=== PATIENT | male | born 1955 | race Caucasian/White ===

== ENCOUNTER 2017-05-10 11:58 | Day surgery (SDC) | payer MEDICARE, BC ==
[2017-05-10] MEDS ORDERED: LIDOCAINE 2% MDV (20MG/ML) 20ML VIAL IV ONE (11:59)
[2017-05-10] MEDS ORDERED: PROPOFOL 10 MG/ML VIAL IV ONE (11:59)
[2017-05-10] MEDS ORDERED: MIDAZOLAM HCL 2MG/2ML VIAL IV ONE (11:59)
--- NOTE | 2017-05-11 13:10 | Operative Note ---
DATE OF SURGERY: 05/10/2017 OPERATION: COLONOSCOPY to the cecum with cold snare polypectomy x2 and electrocautery snare polypectomy x1. INDICATION: Colorectal cancer screening. His last examination was more than 10 years ago. ANESTHESIA: Intravenous sedation was administered by the department of anesthesiology and included Diprivan titrated to effect. PROCEDURE: Following informed consent from this alert individual including a discussion of the risks and benefits of the procedure and an opportunity for the patient to ask questions, the patient was in the left lateral decubitus position. A digital rectal examination was performed. No abnormalities were noted. Following this, the Olympus [id number] video colonoscope was inserted into the rectum without resistance. The rectal mucosa had a normal appearance with normal folds and distensibility. The sigmoid colon was cannulated and demonstrated a 5 mm polyp noted which was removed with cold snare polypectomy and suctioned through the endoscope into a collection trap. The colonoscope was then further advanced up through the remainder of the bowel to the level of cecum without much difficulty. The cecum was defined by noting the appendiceal orifice and ileocecal valve. Retroflexion was accomplished in the rectum and failed to demonstrate changes. The colon preparation as fair with a fair amount of retained liquid stool, most of which was suctioned through the endoscope into a collection trap. Washing was also employed vigorously with suctioning. At the conclusion of the washing and suctioning, the preparation was fair to good. From the base of the cecum, the colonoscope was then slowly withdrawn. There was a descending colon polyp noted measuring 5 mm in size which was removed with cold snare polypectomy. There was a second sigmoid polyp noted measuring 8 mm in size removed with electrocautery snare polypectomy. A white eschar was noted with no bleeding. The endoscope was then brought back into the rectum. Retroflexion accomplished following air insufflation failed to demonstrate changes. Slow withdrawal through the anus revealed external hemorrhoids which were moderate in size. The endoscope was withdrawn. The patient tolerated the procedure well and was returned to the recovery area in stable condition. IMPRESSION: 1. Two sigmoid polyps removed measuring 5 and 8 mm in size. The smaller was removed with cold snare polypectomy and the larger with electrocautery snare polypectomy. 2. One descending colon polyp measuring 5 mm in size removed with cold snare polypectomy. 3. External hemorrhoids. 4. Fair to good prep. RECOMMENDATIONS: Further recommendations will be forthcoming pending results of pathology obtained today and patient might have recheck colonoscopy in 3 years' time, again pending pathology. Followup will also be with Dr. Ivana Devries. As always, thank you for allowing me to participate in the care of your patient. CC: Ivana ROBLES
== END 2017-05-10 14:15 | disposition home or self-care (01) ==
LOC: HOP 11:58
PROVIDERS: ATTEND Internal Medicine Gastroenterology
DX: Z12.11 Encounter for screening for malignant neoplasm of colon (principal); D12.4 Benign neoplasm of descending colon; D12.5 Benign neoplasm of sigmoid colon; Z87.19 Personal history of other diseases of the digestive system; K64.4 Residual hemorrhoidal skin tags; E03.9 Hypothyroidism, unspecified; I10 Essential (primary) hypertension; J44.9 Chronic obstructive pulmonary disease, unspecified

== ENCOUNTER 2017-05-16 16:53 | Emergency (ER) | payer MEDICARE, BC ==
[2017-05-16] MEDS ORDERED: EYE IRRIGATION SOLU. (SOD BOR/BORIC AC/H20/NACL) 118ML BTL OPTH ONE (17:12)
[2017-05-16] MEDS ORDERED: PROPARACAINE HCL OPTH 15ML BTL OPTH ONE (17:12)
--- NOTE | 2017-05-16 17:52 | Emergency Department Record ---
History of Present Illness - General Chief complaint: Eye Problem Stated complaint: FOREIGN OBJECT RT EYE Time Seen by Provider: 05/16/17 17:50 Source: Patient Mode of Arrival: Ambulatory Limitations: No limitations - History of Present Illness Initial comments: 61 yo male presents to ED for evaluation of foreign body sensation to the right eye that began approximately 2.5 hours ago. Patient reports that he was grinding metal when his symptoms began. Patient reports FB sensation to the right eye under the right upper eyelid. Patient denies change in vision, does report pain and eye irritation to the right eye. Patient reports similar symptoms previously, saw an resident manager last fall for similar symptoms. MD chief complaint: Eye pain, Eye redness, Foreign body Onset/Timin -: Hour(s) Onset Description: Sudden Location: Right eye Place: Home If Injury: Occurred while hammering/grinding Eye Symptoms: Burning, Foreign body sensation, Itching Severity: Moderate Severity scale (1-10): 2 If Pain, Quality: Aching, Burning Consistency: Constant, Intermittent Associated Symptoms: None Treatments Prior to Arrival: Irrigated eye - Related Data Visual acuity (L) = 20/: 20 Visual acuity (R) = 20/: 25 With correction: No Hx Tetanus Toxoid Vaccination: Yes Patient Tetanus UTD (within 5 yrs): No Allergies Allergy/AdvReac Type Severity Reaction Status Date / Time Hezrwvy-Ttb-Pgq Reductase Allergy Severe ALTERED Verified 05/16/17 17:11 Inhibitor MENTAL [[id number]-GTE-TUD REDUCTASE STATUS INHIBITOR] fenofibrate nanocrystallized Allergy HYPERSENSIT Verified 05/16/17 17:11 [From Tricor] IVITY fenofibrate,micronized Allergy HYPERSENSIT Verified 05/16/17 17:11 [From Tricor] IVITY cyclobenzaprine HCl AdvReac Intermediate NAUSEA AND Verified 05/16/17 17:11 [From Flexeril] VOMITING fenofibrate AdvReac Intermediate NAUSEA AND Verified 05/16/17 17:11 VOMITING morphine AdvReac Intermediate NAUSEA AND Verified 05/16/17 17:11 VOMITING Penicillins AdvReac Intermediate NAUSEA AND Verified 05/16/17 17:11 VOMITING Travel Screening - Travel/Exposure Within Last 30 Days Have you traveled within the last 30 days?: No - Travel/Exposure Within Last Year Have you traveled outside the [place] in the last year?: No - Additonal Travel Details Have you been exposed to anyone with a communicable illness?: No - Travel Symptoms Symptom Screening: None Review of Systems Constitutional: Denies: Chills, Fever, Malaise, Night sweats Eyes: Reports: Eye pain. Denies: Eye discharge, Photophobia ENT: Denies: Congestion, Ear pain, Epistaxis Respiratory: Denies: Cough, Dyspnea Cardiovascular: Denies: Chest pain, Dyspnea on exertion Endocrine: Denies: Fatigue, Heat or cold intolerance Gastrointestinal: Denies: Abdominal pain, Nausea, Vomiting Genitourinary: Denies: Incontinence, Retention Musculoskeletal: Denies: Arthralgia, Back pain, Gout, Joint swelling Skin: Denies: Bruising, Change in color Neurological: Denies: Abnormal gait, Confusion, Headache, Seizure Psychiatric: Denies: Anxiety Hematological/Lymphatic: Denies: Anemia, Blood Clots Past Medical History - SOCIAL HISTORY Smoking Status: Current every day smoker Alcohol Use: None Drug Use: None - RESPIRATORY Hx Respiratory Disorders: Yes Hx COPD: Yes (mild well controlled with inhalers. very cold weather bothers it) Hx Sleep Apnea: No (denies) Hx of CPAP: No - CARDIOVASCULAR Hx Cardio Disorders: Yes Hx Deep Vein Thrombosis: Yes Hx Hypertension: Yes (good control with meds) Hx Vascular Disease: Yes (right knee aneursym) Comment:: bilateral lower ext DVTs - NEURO Hx Neuro Disorders: Yes Hx Headaches: Yes (related to neck. daily) Hx Neuropathy: Yes (right leg to foot) - GI Hx GI Disorders: Yes Hx Abdominal Pain: Yes (after eating) Hx Reflux: Yes (occassionally) Hx Hiatal Hernia: Yes (had surgery to correct) Hx Irritable Bowel: Yes Hx Nausea/Vomiting: Yes (with headaches) Hx Ulcer: Yes (stomach ulcers x5) Hx Wt Loss/Wt Gain: No Hx of Polyps: Yes - Hx Genitourinary Disorders: No Hx Bladder Problem: No - ENDOCRINE Hx Endocrine Disorders: Yes Hx Thyroid Disease: Yes Comment:: total thyroidectomy "years ago" - MUSCULOSKELETAL Hx Musculoskeletal Disorders: Yes Hx Arthritis: Yes Comment:: pain pump - PSYCH Hx Anxiety: No Hx Depression: No (denies) - HEMATOLOGY/ONCOLOGY Hx Hematology/Oncology Disorders: Yes Hx Bruising: Yes (xaralto) Family Medical History Any Significant Family History?: Yes Hx Cancer: Mother *Cancer Comment: -MANAGER COMBINATION cancer Hx Heart Disease: Father Hx HTN: Father *HTN Comment: father Physical Exam - General General Appearance: Alert, Oriented x3, Cooperative, Moderate distress Limitations: No limitations - Head Head exam: Atraumatic, Normocephalic, Normal inspection Head exam detail: negative: Abrasion, Contusion, Singer's sign, General tenderness, Hematoma, Laceration - Eye Eye exam: Conjunctival injection, Other (On Flourescein examination, there is a very small abrasion overlying the Iris at the 2 o'clock position. No FB is identified on examination, and no FB is present on upper/lower lid eversion.). negative: Periorbital swelling, Periorbital tenderness, Scleral icterus With correction: No - ENT Ear exam: negative: Auricular hematoma, Auricular trauma Nasal Exam: negative: Active bleeding, Discharge, Dried blood, Foreign body Mouth exam: negative: Drooling, Laceration, Muffled voice, Tongue elevation - Neck Neck exam: Normal inspection. negative: Meningismus, Tenderness - Respiratory Respiratory exam: Normal lung sounds bilaterally. negative: Rales, Respiratory distress, Rhonchi, Stridor - Cardiovascular Cardiovascular Exam: Regular rate, Normal rhythm, Normal heart sounds - GI/Abdominal GI/Abdominal exam: Soft. negative: Rebound, Rigid, Tenderness - Rectal Rectal exam: Deferred - exam: Deferred - Extremities Extremities exam: Normal inspection. negative: Calf tenderness, Pedal edema, Tenderness - Back Back exam: Denies: CVA tenderness (R), CVA tenderness (L) - Neurological Neurological exam: Alert, Normal gait, Oriented X3 - Psychiatric Psychiatric exam: Normal affect, Normal mood - Skin Skin exam: Normal color. negative: Abrasion Type of lesion: negative: abrasion Course Vital Signs 05/16/17 17:06 Temperature 97.7 F Pulse Rate 73 Respiratory 22 Rate Blood Pressure 134/67 Pulse Ox 97 - Reevaluation(s) Reevaluation #1: 05/16/17 18:03 Patient was seen and examined, there is no FB present overlying the cornea or on upper/lower lid eversion. Small corneal abrasion may be present at the 2 o' clock position on examination. [facility] reviewed and is 20/25 bilaterally. Will initiate treatment with Gentamycin eye drops with instructions to call his resident manager tomorrow for follow-up. Disposition Disposition: Discharge Clinical Impression: Corneal abrasion Qualifiers: Encounter type: initial encounter Laterality: right Qualified Code(s): S05.01XA - Injury of conjunctiva and corneal abrasion without foreign body, right eye, initial encounter Disposition: Home, Self-Care Condition: (2) Stable Instructions: Corneal Abrasion (ED) Additional Instructions: Return to ED if your symptoms worsen or if you have any concerns. Gentamycin drops as directed. Follow-up with your eye doctor tomorrow, call for appointment. Forms: Patient Portal Access Time of Disposition: 17:51 Quality - Quality Measures Quality Measures: N/A - Blood Pressure Screening Does Patient Have Any of the Following: No Blood Pressure Classification: Pre-Hypertensive BP Reading Systolic Measurement: 134 Diastolic Measurement: 67 Screening for High Blood Pressure: < Pre-Hypertensive BP, F/U Documented > [ G8950] Pre-Hypertensive Follow-up Interventions: Referral to alternative/primary care provider.
[2017-05-16] MEDS ORDERED: GENTAMICIN SULFATE 0.3% OPTH 5 ML BTL OPTH SCH (18:00)
== END 2017-05-16 18:00 | disposition home or self-care (01) ==
LOC: ER 16:53
DX: S05.01XA Injury of conjunctiva and corneal abrasion without foreign body, right eye, initial encounter (principal); J44.9 Chronic obstructive pulmonary disease, unspecified; I10 Essential (primary) hypertension; F17.210 Nicotine dependence, cigarettes, uncomplicated; W22.8XXA Striking against or struck by other objects, initial encounter; Y92.009 Unspecified place in unspecified non-institutional (private) residence as the place of occurrence of the external cause
CPT/HCPCS: 99283

== ENCOUNTER 2017-06-26 18:18 | Emergency (ER) | payer MEDICARE, BC ==
[2017-06-26] MEDS ORDERED: PROPARACAINE HCL OPTH 15ML BTL OPTH ONE (18:23)
[2017-06-26] MEDS ORDERED: POLYMYXIN B SULF/TRIMETHOPRIM 10ML BTL OPTH ONE (18:29)
--- NOTE | 2017-06-26 18:29 | Emergency Department Record ---
History of Present Illness - General Chief complaint: Eye Problem Stated complaint: SOMETHING IN LT EYE Time Seen by Provider: 06/26/17 18:22 Source: Patient Mode of Arrival: Ambulatory Limitations: No limitations - History of Present Illness Initial comments: 61 yo male presents with an injury to his left eye. He was walking near a tree and a twig hit his left eye at 1pm. He has irritation and clear tears. NO bleeding or blood. He only uses reading glasses. No other injury. chief complaint: Eye pain, Eye injury -: Hour(s) (5) Onset Description: Sudden Location: Left eye Place: Street/outdoors If Injury: Direct trauma Eye Symptoms: Decreased vision Severity: Moderate If Pain, Quality: Aching Consistency: Constant Context: Injury Associated Symptoms: None - Related Data Hx Tetanus Toxoid Vaccination: Yes Allergies Allergy/AdvReac Type Severity Reaction Status Date / Time Afszcoc-Nav-Nok Reductase Allergy Severe ALTERED Verified 06/26/17 18:27 Inhibitor MENTAL [RRCOOJL-HQH-BOE REDUCTASE STATUS INHIBITOR] fenofibrate nanocrystallized Allergy HYPERSENSIT Verified 06/26/17 18:27 [From Tricor] IVITY fenofibrate,micronized Allergy HYPERSENSIT Verified 06/26/17 18:27 [From Tricor] IVITY cyclobenzaprine HCl AdvReac Intermediate NAUSEA AND Verified 06/26/17 18:27 [From Flexeril] VOMITING fenofibrate AdvReac Intermediate NAUSEA AND Verified 06/26/17 18:27 VOMITING morphine AdvReac Intermediate NAUSEA AND Verified 06/26/17 18:27 VOMITING Penicillins AdvReac Intermediate NAUSEA AND Verified 06/26/17 18:27 VOMITING Review of Systems Constitutional: Denies: Chills, Fever Eyes: Reports: Eye pain, Photophobia, Vision change. Denies: Eye discharge ENT: Denies: Congestion, Throat pain Respiratory: Denies: Cough, Dyspnea Cardiovascular: Denies: Chest pain, Syncope Endocrine: Denies: Fatigue Gastrointestinal: Denies: Abdominal pain, Diarrhea, Nausea, Vomiting Genitourinary: Denies: Dysuria, Frequency Musculoskeletal: Denies: Arthralgia, Back pain, Myalgia Skin: Denies: Bruising, Change in color, Rash Neurological: Denies: Headache Psychiatric: Denies: Anxiety Past Medical History - SOCIAL HISTORY Smoking Status: Current every day smoker Drug Use: None - RESPIRATORY Hx Respiratory Disorders: Yes Hx COPD: Yes (mild well controlled with inhalers. very cold weather bothers it) Hx Sleep Apnea: No (denies) Hx of CPAP: No - CARDIOVASCULAR Hx Cardio Disorders: Yes Hx Deep Vein Thrombosis: Yes Hx Hypertension: Yes (good control with meds) Hx Vascular Disease: Yes (right knee aneursym) Comment:: bilateral lower ext DVTs - NEURO Hx Neuro Disorders: Yes Hx Headaches: Yes (related to neck. daily) Hx Neuropathy: Yes (right leg to foot) - GI Hx GI Disorders: Yes Hx Abdominal Pain: Yes (after eating) Hx Reflux: Yes (occassionally) Hx Hiatal Hernia: Yes (had surgery to correct) Hx Irritable Bowel: Yes Hx Nausea/Vomiting: Yes (with headaches) Hx Ulcer: Yes (stomach ulcers x5) Hx Wt Loss/Wt Gain: No Hx of Polyps: Yes - Hx Genitourinary Disorders: No Hx Bladder Problem: No - ENDOCRINE Hx Endocrine Disorders: Yes Hx Thyroid Disease: Yes Comment:: total thyroidectomy "years ago" - MUSCULOSKELETAL Hx Musculoskeletal Disorders: Yes Hx Arthritis: Yes Comment:: pain pump - PSYCH Hx Anxiety: No Hx Depression: No (denies) - HEMATOLOGY/ONCOLOGY Hx Hematology/Oncology Disorders: Yes Hx Bruising: Yes (xaralto) Family Medical History Hx Cancer: Mother *Cancer Comment: -INSURANCE OFFICE SUPERVISOR cancer Hx Heart Disease: Father Hx HTN: Father *HTN Comment: father Physical Exam - General General Appearance: Alert, Oriented x3, Cooperative, No acute distress Limitations: No limitations - Head Head exam: Atraumatic, Normocephalic, Normal inspection - Eye Eye exam: Normal appearance, PERRL, EOMI. negative: Conjunctival injection, Periorbital swelling, Periorbital tenderness, Scleral icterus Pupils: Normal accommodation. negative: Irregular, Unequal Image of Eyes: 1 - linear stain uptake consistent with abrasion, no streaming, no hyphema, clear AC on slit lamp examination - ENT ENT exam: Normal exam Ear exam: Normal external inspection Nasal Exam: Normal inspection Mouth exam: Normal external inspection - Neck Neck exam: Normal inspection - Rectal Rectal exam: Deferred - exam: Deferred - Extremities Extremities exam: Normal inspection - Neurological Neurological exam: Alert, Oriented X3 - Psychiatric Psychiatric exam: Normal affect, Normal mood - Skin Skin exam: Dry, Intact, Normal color, Warm Course - Reevaluation(s) Reevaluation #1: 06/26/17 18:32 Slit lamp examination demonstrates a linear corneal abrasion no streaming, no hyphema, pupil is regular, NO FB on the conjunctiva with upper and lower lid eversion Disposition Disposition: Discharge Clinical Impression: Corneal abrasion Qualifiers: Encounter type: initial encounter Laterality: left Qualified Code(s): S05.02XA - Injury of conjunctiva and corneal abrasion without foreign body, left eye, initial encounter Disposition: Home, Self-Care Condition: (1) Good Instructions: Corneal Abrasion (ED) Additional Instructions: Avoid light Motrin for pain See your eye doctor on Wednesday if not completely better Return sooner if worse Use the antibiotic drops every 4 hours 2 drops Time of Disposition: 18:34 Quality - Quality Measures Quality Measures: N/A - Blood Pressure Screening Does Patient Have Any of the Following: No Systolic Measurement: ~ Screening for High Blood Pressure: < Pre-Hypertensive BP, F/U Documented > [ G8950] Pre-Hypertensive Follow-up Interventions: Referral to alternative/primary care provider.
== END 2017-06-26 18:46 | disposition home or self-care (01) ==
LOC: ER 18:18
DX: S05.02XA Injury of conjunctiva and corneal abrasion without foreign body, left eye, initial encounter (principal); W22.8XXA Striking against or struck by other objects, initial encounter; Y92.410 Unspecified street and highway as the place of occurrence of the external cause; I10 Essential (primary) hypertension; F17.210 Nicotine dependence, cigarettes, uncomplicated
CPT/HCPCS: 99283 ×2; J3490

== ENCOUNTER 2018-01-21 06:52 | Day surgery (SDC) | payer MEDICARE, BC ==
--- NOTE | 2018-01-21 06:33 | History and Physical - Ferro ---
CHIEF COMPLAINT/HISTORY OF CHIEF COMPLAINT: This patient presents with a history of an intractable cervical radiculopathy. Due to the failure of therapy a spinal cord stimulator was implanted on 01/29/17. Although the system has been working quite well there has been some programming issues with respect to the pain which is extending into the higher region of the cervical spine. Recently a revised generator for the [employer] stimulator identified as WaveWriter was released which provided greater flexibility in programming. A number of new programming options presented as well the potential to overlay different stimulation patterns simultaneously. Due to the improved functionality of the new generator and with the failure of the current generator in providing overall pain control to upper regions of his pain pattern , he is here for revision with removal and replacement of the generator with the new WaveWriter technology. PAST MEDICAL HISTORY: Hypothyroidism and degenerative arthritis. PAST SURGICAL HISTORY: Hernia repair, gallbladder surgery, shoulder surgery, pump implant and stimulator implant. MEDICATIONS ON ADMISSION: List to be provided. ALLERGIES: PENICILLIN, TRICOR, MORPHINE, AND FLEXERIL. FAMILY/PSYCHOSOCIAL HISTORY: Social history - Caffeine. Family history - Diabetes, coronary artery disease, and cancer. SYSTEMS REVIEW: The patient is appropriate in no acute distress. The remainder of the systems review is noted. PHYSICAL EXAMINATION: Height is 6', weight is 230. No vital signs. HEENT: Within normal limits. LUNGS: Clear. HEART: Regular rate and rhythm. ABDOMEN: Nontender. MUSCULOSKELETAL: Examination of the musculoskeletal system shows diffuse tenderness throughout the cervical spine with an extension along the suboccipital rims. The generator in the right posterior gluteal margin is identified and the incision is intact. Upper extremity functionality is intact. NEUROLOGIC: Cranial nerves are intact. IMPRESSION: 1. CERVICAL RADICULOPATHY, ICD-10 CODE M54.12. 2. CERVICAL SPINAL CORD STIMULATORY AND INTERNAL GENERATOR. PLAN: The patient is here for removal and replacement of the generator with the new technology. The procedure will be considered outpatient, although an overnight stay will be evaluated. JOB NUMBER: [id number] [facility]
[~2018-01-21 06:52] MED LIST: ACETAMINOPHEN 1,000 MG/100 ML BTL IV ONE; CLINDAMYCIN 600MG/50ML PREMIX 600 MG/50 ML BAG IVPB ONE; FAMOTIDINE 20MG TABLET PO ONE; MECLIZINE 25 MG TABLET PO ONE; METOCLOPRAMIDE 10 MG TABLET PO ONE
[2018-01-21] MEDS ORDERED: LIDOCAINE 1% W/EPI 1:200,000 MPF 30ML SQ ONE (06:53)
[2018-01-21] MEDS ORDERED: CLINDAMYCIN (PEDIATRIC DOSING) 150 MG/ML VIAL IVPB ONE (06:53)
[2018-01-21] MEDS ORDERED: LIDOCAINE 2% MDV (20MG/ML) 20ML VIAL IV ONE ×2 (06:53)
[2018-01-21] MEDS ORDERED: FENTANYL PF 100MCG/2ML VIAL IV ONE (06:53)
[2018-01-21] MEDS ORDERED: MIDAZOLAM HCL 2MG/2ML VIAL IV ONE (06:53)
[2018-01-21] MEDS ORDERED: KETAMINE HCL 100MG/1ML VIAL INJ ONE (06:53)
[2018-01-21] MEDS ORDERED: BUPIVACAINE 0.5% W/EPI MPF 30 ML VIAL IVP ONE (06:53)
[2018-01-21] MEDS ORDERED: PROPOFOL 10 MG/ML VIAL IV ONE (06:53)
--- NOTE | 2018-01-22 08:53 | Operative Note - Fer[place] ---
DATE OF SURGERY: 01/21/18 PREOPERATIVE DIAGNOSES: 1. CERVICAL RADICULOPATHY, ICD-10 CODE = M54.12. 2. SPINAL CORD STIMULATOR INTERNAL GENERATOR. OPERATION: FLUOROSCOPICALLY-GUIDED INCISION, SUBCUTANEOUS DISSECTION, AND OBC2VDJ AND REPLACEMENT OF INTERNAL PULSE GENERATOR AT RIGHT POSTERIOR GLUTEAL MARGIN FROM STANDARD GENERATOR TO WAVEWRITER [facility]. SURGEON: KATIANA BEAUCHAMP D.O. ANESTHESIA: LOCAL SEDATION. ANESTHESIA PROVIDER: ALICIA RODRÍGUEZ CRNA. INDICATION: This patient presents with a history of intractable cervical radiculopathy and headaches. Although the system, which has been placed over a number of years has been functioning well, over the last 6-12 months this patient's pain has been extending further down to his arms, hands, and fingers and higher up into the back side of his head. The system has not been able to keep up with this progressive change in his pain pattern. After multiple reprogrammings had failed, it was felt changing him to the new generator WaveWriter technology, which provides greater degrees of functionality by improved overlapping wave control and new waveforms, it was felt that a change to the new generator would be of significant value in controlling his pain. PROCEDURE: Intravenous line, vital sign monitoring, IV sedation, prepped and draped in sterile technique. Under imaging, the generator incision at the right posterior gluteal margin marked, infiltrated, incision made, and subcutaneous dissection was conducted to the generator. The generator was exteriorized and from the internal leads. Antibiotic irrigation. Bovie for hemostasis. The new WaveWriter generator placed onto the field and interfaced with the existing leads. The generator was placed into the pouch and the incision was closed using STRATAFIX suture 2-0 fascia, 3-0 skin. Dermabond closure. He was transported to the Recovery Room stable. No side-effects from the procedure or the sedation. When fully awake and alert, complex programming in the Recovery Room performed over 20 minutes re-establishing stimulation. He was then prepared for discharge. DISCHARGE INSTRUCTIONS: 1. Sites to remain clean and dry. Shower and bathing is okay. He can shower but not sit in water. 2. Standard medications resumed including the antibiotic Keflex. He will take 500 mg four times a day for 10 days. 3. The office will contact the patient at home to set up a time in the next 10 days for us to look at his sites. Until then, his activities should stay controlled. He can drive but limit bend, lift, push, pull. All other instructions provided, numbers to contact, problems given. He was discharged. cc: Dr. Ivana Devries JOB NUMBER: [id number] MTDD
== END 2018-01-21 09:50 | disposition home or self-care (01) ==
LOC: SUR 06:52
PROVIDERS: ATTEND Pain Medicine Interventional Pain Medicine
DX: M54.12 Radiculopathy, cervical region (principal); Q05.9 Spina bifida, unspecified; I10 Essential (primary) hypertension; Z79.01 Long term (current) use of anticoagulants; R60.9 Edema, unspecified; J44.9 Chronic obstructive pulmonary disease, unspecified; I73.9 Peripheral vascular disease, unspecified; Z95.5 Presence of coronary angioplasty implant and graft
CPT/HCPCS: 95972; C1820; J3490